=== PATIENT | male | born 1960 | race Caucasian/White ===

== ENCOUNTER 2020-06-26 12:41 | Emergency (ER) | payer SELFPAY ==
--- NOTE | 2020-06-26 13:14 | EDM.PDOC ---
ED HPI GENERAL MEDICAL PROBLEM - General Chief Complaint: Upper Extremity Injury/Pain Stated Complaint: PAIN IN LEFT SHOULDER Time Seen by Provider: 06/26/20 12:49 Source of Information: Reports: Patient History Limitations: Reports: No Limitations - History of Present Illness INITIAL COMMENTS - FREE TEXT/NARRATIVE: Patient is a 59-year-old male who presents today for pain to his back radiating to his left arm. Patient states he had this pain for the past few days is mostly over the scapula. Patient states pain is made better with pressure and has some increased pain when he does range his left arm. Patient otherwise denies any chest pain shortness of breath fever chills. Patient states that he came in today because he was concerned because he had a friend has similar symptoms and with a mixture was in his heart. Patient does have stents placed and is taking aspirin. Patient again denies any chest pain shortness of breath fever chills or nausea vomiting. Patient also reports he did go to a chiropractor for his back pain a few days ago. Left Shoulder Pain Score (Numeric/FACES): 5 - Related Data Allergies Allergy/AdvReac Type Severity Reaction Status Date / Time No Known Allergies Allergy Verified 09/02/15 15:13 Home Meds: Home Meds Aspirin [Low Dose Aspirin EC] 81 mg PO DAILY 12/18/13 [History] Lisinopril 2.5 mg PO DAILY 12/18/13 [History] Metoprolol Tartrate [Lopressor] 25 mg PO BID 12/18/13 [History] atorvaSTATin [Lipitor] 40 mg PO DAILY 12/18/13 [History] traMADol HCl [Ultram] 50 mg PO Q12HR #15 tablet 09/02/15 [Rx] Past Medical History Cardiovascular History: Reports: High Cholesterol, Hypertension, Stents, Other (See Below) Other Cardiovascular History: SVT Respiratory History: Reports: Sleep Apnea Endocrine/Metabolic History: Reports: Diabetes, Type II - Infectious Disease History Infectious Disease History: Reports: None - Past Surgical History Cardiovascular Surgical History: Reports: Cardiac Ablation, Other (See Below) Other Cardiovascular Surgeries/Procedures: cardiac stress test. cardiac catheterization Musculoskeletal Surgical History: Reports: Shoulder Surgery Social & Family History - Family History Family Medical History: No Pertinent Family History - Tobacco Use Tobacco Use Status *Q: Former Tobacco User Years of Tobacco use: 40 Used Tobacco, but Quit: Yes Month/Year Tobacco Last Used: 02/2015 - Caffeine Use Caffeine Use: Reports: Coffee, Soda - Recreational Drug Use Recreational Drug Use: No Review of Systems - Review of Systems Review Of Systems: See Below Constitutional: Reports: No Symptoms Eyes: Reports: No Symptoms Ears: Reports: No Symptoms Nose: Reports: No Symptoms Mouth/Throat: Reports: No Symptoms Respiratory: Reports: No Symptoms Cardiovascular: Reports: No Symptoms GI/Abdominal: Reports: No Symptoms Genitourinary: Reports: No Symptoms Musculoskeletal: Reports: Back Pain Skin: Reports: No Symptoms Neurological: Reports: No Symptoms Psychiatric: Reports: No Symptoms ED EXAM, GENERAL - Physical Exam Exam: See Below Exam Limited By: No Limitations General Appearance: Alert, WD/WN, No Apparent Distress Eye Exam: Bilateral Eye: EOMI, PERRL Respiratory/Chest: No Respiratory Distress, Lungs Clear, Normal Breath Sounds Cardiovascular: Normal Peripheral Pulses, Regular Rate, Rhythm, No Edema GI/Abdominal: Normal Bowel Sounds, Soft, Non-Tender Back Exam: Full Range of Motion Extremities: Normal Inspection, Normal Range of Motion Neurological: Alert, Oriented, Normal Cognition, Normal Gait #1 Interpretation EKG Date: 06/26/20 Time: 13:02 Rhythm: NSR Rate (Beats/Min): 63 ST-T: Normal Course - Vital Signs Last Recorded V/S: Last Vital Signs Temp 98.3 F 06/26/20 12:51 Pulse 73 06/26/20 12:51 Resp 18 06/26/20 12:51 BP 137/48 L 06/26/20 12:51 Pulse Ox 94 L 06/26/20 12:51 - Orders/Labs/Meds Labs: Laboratory Tests 06/26/20 06/26/20 Range/Units 13:14 13:14 WBC 7.78 (4.0-11.0) K/uL RBC 4.63 (4.50-5.90) M/uL Hgb 15.0 (13.0-17.0) g/dL Hct 43.4 (38.0-50.0) % MCV 93.7 (80.0-98.0) fL MCH 32.4 H (27.0-32.0) pg MCHC 34.6 (31.0-37.0) g/dL RDW Std Deviation 44.6 (28.0-62.0) fl RDW Coeff of Matt 13 (11.0-15.0) % Plt Count 213 (150-400) K/uL MPV 10.60 (7.40-12.00) fL Neut % (Auto) 70.4 (48.0-80.0) % Lymph % (Auto) 18.9 (16.0-40.0) % Grimes % (Auto) 9.4 (0.0-15.0) % Eos % (Auto) 1.2 (0.0-7.0) % Baso % (Auto) 0.1 (0.0-1.5) % Neut # (Auto) 5.5 (1.4-5.7) K/uL Lymph # (Auto) 1.5 (0.6-2.4) K/uL Grimes # (Auto) 0.7 (0.0-0.8) K/uL Eos # (Auto) 0.1 (0.0-0.7) K/uL Baso # (Auto) 0.0 (0.0-0.1) K/uL Nucleated RBC % 0.0 /100WBC Nucleated RBCs # 0 K/uL Sodium 135 L (136-148) mmol/L Potassium 4.7 (3.5-5.1) mmol/L Chloride 99 (98-107) mmol/L Carbon Dioxide 22.9 (21.0-32.0) mmol/L BUN 23 H (7.0-18.0) mg/dL Creatinine 0.9 (0.8-1.3) mg/dL Est Cr Clr Drug Dosing 76.88 mL/min Estimated GFR (MDRD) > 60.0 ml/min Glucose 121 H (74-106) mg/dL Calcium 8.4 L (8.5-10.1) mg/dL Magnesium 1.7 L (1.8-2.4) mg/dL Creatine Kinase 196 (26-308) U/L Troponin I < 0.050 (0.000-0.056) ng/mL Lipase 106 (73-393) U/L - Re-Assessments/Exams Free Text/Narrative Re-Assessment/Exam: 06/26/20 14:19 Patient EKG and troponins are negative. Patient pain that began was unlikely to be cardiac but due to patient history we performed the status. Patient pain is again reproducible on exam and patient does have a little bit of a knot on the back. Patient pain can possibly be related to muscular pain. We will refer patient to his primary care physician. Departure - Departure Time of Disposition: 14:20 Disposition: Home, Self-Care 01 Condition: Good Clinical Impression: Pain in scapula - Discharge Information *PRESCRIPTION DRUG MONITORING PROGRAM REVIEWED*: Not Applicable *COPY OF PRESCRIPTION DRUG MONITORING REPORT IN PATIENT FERNANDO: Not Applicable Instructions: Shoulder Pain, [id number] Referrals: Shubham Giraldo MD [Primary Care Provider] - Forms: ED Department Discharge Additional Instructions: The following information is given to patients seen in the emergency department who are being discharged to home. This information is to outline your options for follow-up care. We provide all patients seen in our emergency department with a follow-up referral. The need for follow-up, as well as the timing and circumstances, are variable depending upon the specifics of your emergency department visit. If you don't have a primary care physician on staff, we will provide you with a referral. We always advise you to contact your personal physician following an emergency department visit to inform them of the circumstance of the visit and for follow-up with them and/or the need for any referrals to a consulting specialist. The emergency department will also refer you to a specialist when appropriate. This referral assures that you have the opportunity for follow-up care with a specialist. All of these measure are taken in an effort to provide you with optimal care, which includes your follow-up. Under all circumstances we always encourage you to contact your private physician who remains a resource for coordinating your care. When calling for follow-up care, please make the office aware that this follow-up is from your recent emergency room visit. If for any reason you are refused follow-up, please contact the [facility] Emergency Department at and asked to speak to the emergency department charge nurse. Please follow up with your primary care physician. If you do not have a primary care physician, see below: [facility] [address] [place] [id number] [facility] [address] [place] [id number] You were seen for pain in your back mostly over your scapula. We performed EKG and labs to make sure that this was noncardiac. Those came back within normal range. This is most likely muscle skeletal pain. We still recommend you follow-up with your primary care physician for further evaluation. You have any increased pain fevers chills or other concerning symptoms please return to the ED immediately. Sepsis Event Note (ED) - Evaluation Sepsis Screening Result: No Definite Risk - Focused Exam Vital Signs: Vital Signs Temp Pulse Resp BP Pulse Ox 06/26/20 12:51 98.3 F 73 18 137/48 L 94 L - Assessment/Plan Plan: Patient is a 59-year-old male presents today for pain mostly of his left scapula and became concerned when he felt like he was radiating to his left arm. Pain is reproducible on exam made worse with range of the left arm. Due to patient's cardiac history we will obtain EKG labs and rule out any cardiac involvement. Pain most likely related to the muscle skeletal.
[2020-06-26 13:51] LABS: BLOOD UREA NITROGEN,BUN 23 mg/dL (7.0-18.0); CARBON DIOXIDE,CO2 22.9 mmol/L (21.0-32.0); CHLORIDE,CL 99 mmol/L (98-107); GLUCOSE RANDOM 121 mg/dL (74-106); LIPASE 106 U/L (73-393); POTASSIUM,K 4.7 mmol/L (3.5-5.1); SODIUM,NA 135 mmol/L (136-148)
--- NOTE | 2020-06-26 14:16 | CR ---
INDICATION: possible chest pain but more scapula radiate to arm TECHNIQUE: Chest 2 views. COMPARISON: None. FINDINGS: Cardiovascular and mediastinum: Heart size and vasculature are normal in caliber and appearance. Mediastinum is within normal limits. Lungs and pleural spaces: Lungs are clear. No sign of infiltrate or mass. No sign of pleural effusion. No pneumothorax. Bones and soft tissues: No significant findings. IMPRESSION: Unremarkable chest. Dictated by: Dexter Servin MD @ 06/26/2020 14:16:06 (Electronically Signed)
[2020-06-26 14:28] VITALS: BP 118/68; PULSE 65
== END 2020-06-26 14:28 | disposition home or self-care (01) ==
LOC: MW.ED 12:41
DX: M25.512 Pain in left shoulder (principal); E78.00 Pure hypercholesterolemia, unspecified; I10 Essential (primary) hypertension; E11.9 Type 2 diabetes mellitus without complications; Z87.891 Personal history of nicotine dependence; Z79.82 Long term (current) use of aspirin; Z79.899 Other long term (current) drug therapy; Z95.5 Presence of coronary angioplasty implant and graft
CPT/HCPCS: 36415; 71046; 71046-26; 80048; 82550; 83690; 83735; 84484; 85025; 93005; 93010; 99283; 99284-25

== ENCOUNTER 2021-04-21 07:58 | Day surgery (SDC) | payer SELFPAY ==
[2021-04-21] MEDS ORDERED: Lidocaine 2% 5 ML SDV INJECT ONE (08:17)
[2021-04-21] MEDS ORDERED: Ketorolac 30 MG/ML SDV IVPUSH ONE (08:35)
[2021-04-21 09:23] LABS: BLOOD UREA NITROGEN,BUN 13 mg/dL (7.0-18.0); CARBON DIOXIDE,CO2 25.5 mmol/L (21.0-32.0); CHLORIDE,CL 100 mmol/L (98-107); ESTIMATED GFR > 60.0 ml/min; GLUCOSE RANDOM 154 mg/dL (74-106); POTASSIUM,K 4.2 mmol/L (3.5-5.1); SODIUM,NA 137 mmol/L (136-148)
[2021-04-21] MEDS ORDERED: Iopamidol 755 MG/ML 500 ML Multipack Bottle IVPUSH STA (09:56)
[2021-04-21] MEDS ORDERED: metroNIDAZOLE/Normal Saline 500 MG in Premix Bag 1 BAG IV ONE (11:37)
[2021-04-21] MEDS ORDERED: Ciprofloxacin in D5W 400 MG in Premix Bag 1 BAG IV SCH ×2 (11:45)
[2021-04-21] MEDS ORDERED: Lactated Ringers 1,000 ML IV SCH ×2 (12:45→17:30)
[2021-04-21] MEDS ORDERED: Metoclopramide 10 MG/2 ML SDV IVPUSH PRN (13:24)
[2021-04-21] MEDS ORDERED: fentaNYL 100 MCG/2 ML SDV IVPUSH PRN (13:24)
[2021-04-21] MEDS ORDERED: Ondansetron 4 MG/2 ML SDV IVPUSH PRN (13:24)
[2021-04-21] MEDS ORDERED: Naloxone 0.4 MG/ML SDV IVPUSH PRN (13:24)
[2021-04-21] MEDS ORDERED: Albuterol 0.083% 2.5 MG/3 ML Neb Soln NEB PRN (13:24)
[2021-04-21] MEDS ORDERED: HYDROmorphone 1 MG/ML Syringe IVPUSH PRN (13:24)
[2021-04-21] MEDS ORDERED: Ondansetron 4 MG/2 ML SDV ONE (15:02)
[2021-04-21] MEDS ORDERED: fentaNYL 100 MCG/2 ML SDV ONE (15:03)
[2021-04-21] MEDS ORDERED: Propofol 200 MG/20 ML SDV ONE ×2 (15:03→16:38)
[2021-04-21] MEDS ORDERED: Lidocaine 2% 5 ML SDV ONE ×2 (15:04→16:49)
[2021-04-21] MEDS ORDERED: Glycopyrrolate 0.2 MG/ML SDV ONE (15:04)
[2021-04-21] MEDS ORDERED: Bupivacaine 0.5% 10 ML SDV ONE (15:16)
[2021-04-21] MEDS ORDERED: Morphine 2 MG/ML SYRINGE IVPUSH PRN (17:25)
[2021-04-21] MEDS ORDERED: Acetaminophen/HYDROcodone 325-5 MG Tab PO PRN (17:25)
[2021-04-21 23:44] VITALS: BP 136/70; PULSE 76
== END 2021-04-21 21:00 | disposition home or self-care (01) ==
LOC: MW.ED 07:58 → MW.SDS 12:36 → MW.MS 14:54 → MW.SDS 21:00
PROVIDERS: ATTEND Surgery
DX: K64.5 Perianal venous thrombosis (principal); K61.0 Anal abscess; E78.00 Pure hypercholesterolemia, unspecified; I10 Essential (primary) hypertension; G47.30 Sleep apnea, unspecified; E11.9 Type 2 diabetes mellitus without complications; Z98.890 Other specified postprocedural states; Z79.82 Long term (current) use of aspirin; Z01.812 Encounter for preprocedural laboratory examination; Z20.822 Contact with and (suspected) exposure to COVID-19; Z79.899 Other long term (current) drug therapy
CPT/HCPCS: 00902; 36415; 74177; 74177-26; 80053; 85025; 87070; 87075; 87077; 87186; 87205; 96365; 96368; 96375; 99283; 99284-25; J0330; J0744; J1885; J2405; J2704; J3010; J3490; J7120; Q9967; U0002

== ENCOUNTER 2021-07-15 07:40 | Emergency (ER) | payer SELFPAY ==
[2021-07-15 08:30] VITALS: BP 128/59; PULSE 93
== END 2021-07-15 08:10 | disposition home or self-care (01) ==
LOC: MW.ED 07:40
DX: H60.502 Unspecified acute noninfective otitis externa, left ear (principal); E11.9 Type 2 diabetes mellitus without complications; E66.9 Obesity, unspecified; Z68.41 Body mass index [BMI] 40.0-44.9, adult; Z79.82 Long term (current) use of aspirin; Z79.899 Other long term (current) drug therapy; Z79.84 Long term (current) use of oral hypoglycemic drugs
CPT/HCPCS: 99282

== ENCOUNTER 2021-09-03 12:21 | Emergency (ER) | payer SELFPAY ==
[2021-09-03] MEDS ORDERED: Sodium Chloride 0.9% 1,000 ML IV ONE (12:31)
[2021-09-03] MEDS ORDERED: Aspirin 81 MG Tab.Chew PO ONE (12:31)
[2021-09-03 13:14] LABS: CARBON DIOXIDE,CO2 25.5 mmol/L (21.0-32.0); POTASSIUM,K 4.4 mmol/L (3.5-5.1)
[2021-09-03 17:58] VITALS: BP 156/87; PULSE 86
== END 2021-09-03 15:45 | disposition home or self-care (01) ==
LOC: MW.ED 12:21
DX: R55 Syncope and collapse (principal); E78.00 Pure hypercholesterolemia, unspecified; I10 Essential (primary) hypertension; E11.9 Type 2 diabetes mellitus without complications; E66.9 Obesity, unspecified; Z68.41 Body mass index [BMI] 40.0-44.9, adult; Z79.899 Other long term (current) drug therapy; Z79.82 Long term (current) use of aspirin; Z79.84 Long term (current) use of oral hypoglycemic drugs; Z20.822 Contact with and (suspected) exposure to COVID-19
CPT/HCPCS: 36415; 71045; 80053; 83735; 84484; 85025; 87635; 93005; 96360; 99285; J7030; U0002

== ENCOUNTER 2022-09-25 10:04 | Emergency (ER) | payer SELFPAY ==
[2022-09-25] MEDS ORDERED: Dexamethasone 10 MG/ML SDV IVPUSH ONE (10:39)
[2022-09-25] MEDS ORDERED: Ketorolac 30 MG/ML SDV IVPUSH ONE (10:39)
[2022-09-25] MEDS ORDERED: Sodium Chloride 0.9% 1,000 ML IV ONE (10:39)
[2022-09-25 10:59] LABS: BASOPHILS PERCENT AUTO 0.1 % (0.0-1.5); EOSINOPHILS ABSOLUTE AUTO 0.1 K/uL (0.0-0.7); EOSINOPHILS PERCENT AUTO 0.8 % (0.0-7.0); LYMPHOCYTES ABSOLUTE AUTO 1.1 K/uL (0.6-2.4); LYMPHOCYTES PERCENT AUTO 13.1 % (16.0-40.0); MEAN CORPUSCULAR HEMOGLOBIN 31.6 pg (27.0-32.0); MEAN CORPUSCULAR HGB CONC 33.3 g/dL (31.0-37.0); MEAN CORPUSCULAR VOLUME 94.7 fL (80.0-98.0); MONOCYTES ABSOLUTE AUTO 0.9 K/uL (0.0-0.8); MONOCYTES PERCENT AUTO 11.3 % (0.0-15.0); NEUTROPHILS ABSOLUTE AUTO 6.2 K/uL (1.4-5.7); NEUTROPHILS PERCENT AUTO 74.7 % (48.0-80.0); NRBC ABSOLUTE 0 K/uL; PLATELET COUNT,PLT 311 K/uL (150-400); RED BLOOD CELL COUNT 4.12 M/uL (4.50-5.90); WHITE BLOOD CELL COUNT,WBC 8.31 K/uL (4.0-11.0)
[2022-09-25 11:35] LABS: ALBUMIN 3.7 g/dL (3.4-5.0); BILIRUBIN TOTAL 0.6 mg/dL (0.2-1.0); CALCIUM 8.7 mg/dL (8.5-10.1); CARBON DIOXIDE,CO2 24.9 mmol/L (21.0-32.0); CREATININE 0.8 mg/dL (0.8-1.3); EST CRCL DRUG DOSING (CG) 87.5 mL/min; POTASSIUM,K 4.4 mmol/L (3.5-5.1); PROTEIN TOTAL,TP 7.4 g/dL (6.4-8.2); TSH ULTRASENSITIVE 0.88 uIU/mL (0.36-3.74)
[2022-09-25] MEDS ORDERED: Iopamidol 755 Mg/ML 100 ML Bottle IVPUSH ONE (12:06)
[2022-09-25 13:19] VITALS: BP 134/78; PULSE 61
== END 2022-09-25 13:09 | disposition home or self-care (01) ==
LOC: MW.ED 10:04
DX: J03.90 Acute tonsillitis, unspecified (principal); E78.00 Pure hypercholesterolemia, unspecified; I10 Essential (primary) hypertension; E11.9 Type 2 diabetes mellitus without complications; E66.9 Obesity, unspecified; Z68.41 Body mass index [BMI] 40.0-44.9, adult; Z79.82 Long term (current) use of aspirin; Z79.899 Other long term (current) drug therapy; Z79.84 Long term (current) use of oral hypoglycemic drugs
CPT/HCPCS: 36415; 70491; 80053; 84443; 85025; 87651; 96374; 96375; 99284; J1100; J1885; J7030; Q9967